=== PATIENT | male | born 1965 | race Caucasian/White ===

== ENCOUNTER 2024-12-16 16:51 | Inpatient (IN) | payer MEDICARE, OTHER ==
[~2024-12-16] VITALS: Ht 175.3 cm; Wt 90.7 kg
[~2024-12-16 16:51] MED LIST: CLON1TAB PO; DIVA500T2 PO; ESOM40CA PO; FERR-31 PO; HALO5TAB12 PO; HYDR-500 PO; LORA-114 PO; OLAN10TA3 PO; OLAN5TAB3 PO; PARO-142 PO; TRIH2TAB4 PO
[2024-12-16 17:25] LABS: *BILIRUBIN,URIN NEGATIVE (NEGATIVE); *BLOOD, URINE 1+ (NEGATIVE); *CLARITY,URINE CLEAR (CLEAR); *COLOR,URINE YELLOW (YELLOW); *KETONES,URINE NEGATIVE (NEGATIVE); *PROTEIN,URINE NEGATIVE (NEGATIVE); *UROBILINOGEN,URINE 0.2 E.U./dl (NORMAL); LEUKOCYTE ESTERASE ,URINE NEGATIVE (NEGATIVE); NITRITE, URINE NEGATIVE (NEGATIVE); PH,URINE 6.5 (5.0-8.0); UGLUCOSE NEGATIVE (NEGATIVE)
[2024-12-16 17:40] LABS: *AMPHETAMINE, URINE NEGATIVE (NEGATIVE); *BARBITURATE, URINE NEGATIVE (NEGATIVE); *BENZODIAZEPINE, URINE NEGATIVE (NEGATIVE); *CANNABINOID, URINE NEGATIVE (NEGATIVE); *COCCAINE, URINE NEGATIVE (NEGATIVE); *OPIATE, URINE NEGATIVE (NEGATIVE); *PHENCYCLIDINE SCREEN,URINE NEGATIVE (NEGATIVE); FENTANYL, URINE NEGATIVE (NEGATIVE)
[2024-12-16 17:45] LABS: AMMONIA 36 umol/L (11-32); CALCIUM 8.9 mg/dL (8.5-10.1); CARBON DIOXIDE 28 mmol/L (21-32); CHLORIDE 104 mmol/L (98-107); CREATININE 0.8 mg/dL (0.6-1.3); GLUCOSE 111 mg/dL (74-106); POTASSIUM 4.2 mmol/L (3.5-5.1); SODIUM SERUM 140 mmol/L (136-145); UREA NITROGEN, BLOOD 21 mg/dL (7-18)
[2024-12-16 17:46] LABS: BASOPHILS # (AUTO) 0.1 K/UL (0.0-0.2); BASOPHILS % (AUTO) 0.8 % (0.0-2.0); DIFFERENTIAL COMMENT 0; EOSINOPHILS # (AUTO) 0.2 K/uL (0.0-0.7); EOSINOPHILS % (AUTO) 2.8 % (0.0-7.0); HEMATOCRIT 37.1 % (36.7-47.1); HEMOGLOBIN 12.6 g/dL (12.5-16.3); LYMPHOCYTES # (AUTO) 2.8 K/uL (0.8-4.8); LYMPHOCYTES % (AUTO) 37.8 % (20.5-51.5); MEAN CORPUSCULAR HEMOGLOBIN 30.3 uug (23.8-33.4); MEAN CORPUSCULAR HGB CONC 34 g/dL (32.5-36.3); MEAN CORPUSCULAR VOLUME 88.8 fL (73.0-96.2); MONOCYTES # (AUTO) 0.8 K/uL (0.1-1.30); MONOCYTES % (AUTO) 10.8 % (0.0-11.0); NEUTROPHILS # (AUTO) 3.6 K/uL (1.8-8.9); NEUTROPHILS % (AUTO) 47.8 % (38.5-71.5); PLATELET COUNT (AUTO) 269 K/uL (152-348); RED BLOOD CELL COUNT(AUTO) 4.17 MIL/uL (4.06-5.63); RED CELL DISTRIBUTION WIDTH 15.2 % (12.1-16.2); WHITE BLOOD COUNT (AUTO) 7.5 K/uL (3.6-10.2)
[2024-12-16 17:50] LABS: ACETAMINOPHEN < 2.0 ug/mL (10-30); ALANINE AMINOTRANSFERASE 38 U/L (16-63); ALBUMIN 3.1 g/dL (3.4-5.0); ALKALINE PHOSPHATASE 72 U/L (50-136); ASPARTATE AMINOTRANSFERASE 29 U/L (15-37); BILIRUBIN,DIRECT 0.1 mg/dL (0.0-0.2); BILIRUBIN,TOTAL 0.2 mg/dL (0.2-1.0); TOTAL PROTEIN, SERUM 7.8 g/dL (6.4-8.2)
[2024-12-16] MEDS ORDERED: DOCU100T2 PO (17:53)
[2024-12-16] MEDS ORDERED: LORA-259 PO (17:53)
[2024-12-16] MEDS ORDERED: CLON0.1T PO (17:53)
[2024-12-16] MEDS ORDERED: DIVA250T PO (17:53)
[2024-12-16] MEDS ORDERED: MULT-225 PO (17:53)
[2024-12-16] MEDS ORDERED: CLOZ100T32 PO (17:53)
[2024-12-16] MEDS ORDERED: AMLO10TA59 PO (17:53)
[2024-12-16] MEDS ORDERED: ALBU8.5H8 IH (17:53)
[2024-12-16] MEDS ORDERED: GABA-532 PO (17:53)
[2024-12-16 17:58] LABS: ETHANOL < 3 MG/DL (0-10)
[2024-12-16 18:08] LABS: THYROID STIMULATING HORMONE 8.355 mIU/mL (0.358-3.740)
[2024-12-16 18:56] LABS: BACTERIA,URINE NONE SEEN /HPF (NONE SEEN); SQUAMOUS EPITHELIAL CELL,UR FEW /HPF (NONE SEEN); WBC,URINE 0-3 /HPF (0-3)
[2024-12-16] MEDS ORDERED: MAG HYDROX/AL HYDROX/SIMETH 30 ML LIQUID UDC PO PRN (22:15)
[2024-12-16] MEDS ORDERED: TEMAZEPAM 7.5 MG CAPSULE PO PRN ×2 (22:15)
[2024-12-16] MEDS ORDERED: MAGNESIUM HYDROXIDE 30 ML LIQUID UDC PO PRN (22:15)
[2024-12-16] MEDS: BLOOD SUGAR DIAGNOSTIC 1 EACH STRIP VI ONE (22:30)
[2024-12-17 08:11] VITALS: BP 119/79; TEMP 97.5; O2SAT 98
[2024-12-17 08:27] LABS: ALBUMIN 3.2 g/dL (3.4-5.0); BILIRUBIN,TOTAL 0.3 mg/dL (0.2-1.0); CREATININE 0.8 mg/dL (0.6-1.3)
[2024-12-17] MEDS: NICOTINE 21 MG/24HR PATCH TD SCH (08:46)
[2024-12-17] MEDS ORDERED: ALBUTEROL SULFATE 2.5 MG/3 ML NEBU NEB PRN (11:45)
[2024-12-17] MEDS ORDERED: ALBUTEROL SULFATE 8 GM HFA.AER.AD IH PRN (11:45)
[2024-12-17 16:50] VITALS: BP 129/83; TEMP 98.5; O2SAT 100
[2024-12-17 20:02] VITALS: BP 131/80; TEMP 98.2; O2SAT 100
[2024-12-17] MEDS: LORAZEPAM 1 MG TABLET PO PRN (23:55)
[2024-12-17] MEDS: ACETAMINOPHEN 325 MG TABLET PO PRN (23:56)
[2024-12-18] MEDS: CLONIDINE HCL 0.1 MG TABLET PO PRN (07:30)
[2024-12-18] MEDS: GABAPENTIN 100 MG CAPSULE PO SCH (08:34)
[2024-12-18] MEDS: AMLODIPINE 10 MG TABLET PO SCH (08:35)
[2024-12-18 08:45] VITALS: BP 161/85; TEMP 98.1; O2SAT 98
[2024-12-18] MEDS: DIVALPROEX 250 MG TABLET.DR PO SCH (08:59)
[2024-12-18] MEDS: risperiDONE 1 MG TABLET PO SCH (08:59)
[2024-12-18] MEDS ORDERED: risperiDONE 0.5 MG TABLET PO SCH (09:00)
[2024-12-18] MEDS: NEOMY/BACITRAC/POLYMI OINT 28.35 GM TUBE TOP SCH (10:15)
[2024-12-18 16:00] VITALS: BP 140/86; TEMP 98; O2SAT 98
[2024-12-18] MEDS ORDERED: TEMAZEPAM 15 MG CAPSULE PO PRN (17:30)
[2024-12-18] MEDS: LORAZEPAM 1 MG TABLET PO PRN (19:53)
[2024-12-18 20:02] VITALS: BP 137/85; TEMP 98; O2SAT 98
[2024-12-18] MEDS: CLOZAPINE 100 MG TABLET PO SCH (21:32)
[2024-12-19 08:04] VITALS: BP 104/68; TEMP 98.2; O2SAT 98
[2024-12-19 15:14] VITALS: BP 123/75; TEMP 98; O2SAT 98
[2024-12-19] MEDS ORDERED: TEMAZEPAM 15 MG CAPSULE PO PRN (18:15)
[2024-12-19 19:51] VITALS: BP 128/80; TEMP 97.8; O2SAT 97
[2024-12-20 07:40] VITALS: BP 119/80; TEMP 98; O2SAT 98
[2024-12-20 15:44] VITALS: BP 130/80; TEMP 98; O2SAT 98
[2024-12-20 20:00] VITALS: BP 110/65; TEMP 97.7; O2SAT 97
[2024-12-21 07:49] VITALS: BP 122/68; TEMP 98.2; O2SAT 99
[2024-12-21 15:50] VITALS: BP 123/76; TEMP 98; O2SAT 99
[2024-12-21 19:48] VITALS: BP 135/85; TEMP 98; O2SAT 98
[2024-12-22] MEDS: LORAZEPAM 1 MG TABLET PO PRN (02:56)
[2024-12-22 07:51] VITALS: BP 125/73; TEMP 98; O2SAT 99
[2024-12-22 15:37] VITALS: BP 105/61; TEMP 98; O2SAT 98
[2024-12-22 21:03] VITALS: BP 143/90; TEMP 98; O2SAT 97
[2024-12-23 06:48] LABS: BASOPHILS # (AUTO) 0.1 K/UL (0.0-0.2); BASOPHILS % (AUTO) 0.8 % (0.0-2.0); EOSINOPHILS # (AUTO) 0.3 K/uL (0.0-0.7); EOSINOPHILS % (AUTO) 4.4 % (0.0-7.0); HEMATOCRIT 35.7 % (36.7-47.1); HEMOGLOBIN 12.5 g/dL (12.5-16.3); LYMPHOCYTES # (AUTO) 2.3 K/uL (0.8-4.8); LYMPHOCYTES % (AUTO) 31.8 % (20.5-51.5); MEAN CORPUSCULAR HEMOGLOBIN 31.1 uug (23.8-33.4); MEAN CORPUSCULAR HGB CONC 35 g/dL (32.5-36.3); MEAN CORPUSCULAR VOLUME 88.9 fL (73.0-96.2); MONOCYTES # (AUTO) 0.7 K/uL (0.1-1.30); MONOCYTES % (AUTO) 9.4 % (0.0-11.0); NEUTROPHILS # (AUTO) 3.9 K/uL (1.8-8.9); NEUTROPHILS % (AUTO) 53.6 % (38.5-71.5); PLATELET COUNT (AUTO) 260 K/uL (152-348); RED BLOOD CELL COUNT(AUTO) 4.02 MIL/uL (4.06-5.63); RED CELL DISTRIBUTION WIDTH 15.7 % (12.1-16.2); WHITE BLOOD COUNT (AUTO) 7.3 K/uL (3.6-10.2)
[2024-12-23 06:52] LABS: DIFFERENTIAL COMMENT 1
[2024-12-23 08:04] VITALS: BP 120/80; TEMP 98.1; O2SAT 97
[2024-12-23 16:02] VITALS: BP 131/71; TEMP 98.1; O2SAT 98
[2024-12-23 21:23] VITALS: BP 133/79; TEMP 98; O2SAT 96
[2024-12-24 08:03] VITALS: BP 125/78; TEMP 98; O2SAT 98
[2024-12-24 16:06] VITALS: BP 149/79; TEMP 98.4; O2SAT 100
[2024-12-24 20:40] VITALS: BP 119/79; TEMP 98.5; O2SAT 100
[2024-12-24] MEDS ORDERED: risperiDONE 1 MG TABLET PO SCH (23:15)
[2024-12-25 08:03] VITALS: BP 108/70; TEMP 97.8; O2SAT 97
[2024-12-25] MEDS: risperiDONE 2 MG TABLET PO SCH (08:28)
[2024-12-25] MEDS ORDERED: risperiDONE 1 MG TABLET PO SCH (09:00)
[2024-12-25 16:07] VITALS: BP 137/81; TEMP 98; O2SAT 99
[2024-12-25 19:34] VITALS: BP 111/62; TEMP 97.6; O2SAT 96
[2024-12-26 07:52] VITALS: BP 119/67; TEMP 98.2; O2SAT 96
[2024-12-26 15:52] VITALS: BP 139/67; TEMP 98; O2SAT 96
[2024-12-26 19:53] VITALS: BP 150/85; TEMP 97.9; O2SAT 95
[2024-12-27 08:00] VITALS: BP 109/83; TEMP 98.4; O2SAT 98
[2024-12-27 15:23] VITALS: BP 148/77; TEMP 98; O2SAT 100
[2024-12-27 20:00] VITALS: BP 115/79; TEMP 98.3; O2SAT 95
[2024-12-27] MEDS: CLOZAPINE 100 MG TABLET PO SCH (20:04)
[2024-12-28 09:15] VITALS: BP 128/76; TEMP 98.9; O2SAT 99
[2024-12-28 17:03] VITALS: BP 139/94; TEMP 98.7; O2SAT 96
== END 2024-12-28 17:10 | DRG 885 ==
LOC: ER 16:56 → GPS 18:30
PROVIDERS: ADMIT Psychiatry & Neurology Psychiatry; ATTEND Nurse Practitioner Acute Care
DX: F25.0 Schizoaffective disorder, bipolar type (principal); K22.10 Ulcer of esophagus without bleeding; E44.1 Mild protein-calorie malnutrition; F42.9 Obsessive-compulsive disorder, unspecified; K21.00 Gastro-esophageal reflux disease with esophagitis, without bleeding; Z79.899 Other long term (current) drug therapy; S61.211A Laceration without foreign body of left index finger without damage to nail, initial encounter; X58.XXXA Exposure to other specified factors, initial encounter; Y92.129 Unspecified place in nursing home as the place of occurrence of the external cause; F17.210 Nicotine dependence, cigarettes, uncomplicated; K21.9 Gastro-esophageal reflux disease without esophagitis; K44.9 Diaphragmatic hernia without obstruction or gangrene; I10 Essential (primary) hypertension; J44.9 Chronic obstructive pulmonary disease, unspecified; E11.40 Type 2 diabetes mellitus with diabetic neuropathy, unspecified; E88.09 Other disorders of plasma-protein metabolism, not elsewhere classified; E66.9 Obesity, unspecified; Z68.29 Body mass index [BMI] 29.0-29.9, adult; F94.0 Selective mutism; Z87.19 Personal history of other diseases of the digestive system
CPT/HCPCS: 36415; 70450; 71045; 80164; 84443; 84484; 85025; 85730; 87086; G0480; J3490